=== PATIENT | male | born 1985 | race Caucasian/White ===

== ENCOUNTER 2020-07-11 11:30 | Outpatient (REF) | payer BC, SELFPAY | END 2020-07-11 11:31 | LOC: HO.LNP 11:30 | PROVIDERS: Visit Provider Internal Medicine | DX: N50.812 Left testicular pain (principal) | CPT/HCPCS: 81003 ==

== ENCOUNTER 2020-07-21 09:40 | Outpatient (REF) | payer BC, SELFPAY ==
[2020-07-21 10:52] LABS: Glucose Urine UA NEG (NEG); Leukocyte Esterase Urine NEG (NEG); Nitrite Urine NEG (NEG); Specific Gravity - Urine >= 1.030 (1.005-1.025); Urine Blood NEG (NEG); Urine Ketones NEG (NEG); Urine Protein NEG (NEG-TRACE)
[2020-07-21 10:54] LABS: Appearance Urine CLEAR; Color Urine YELLOW; UACC Culture Trigger NO
== END 2020-07-21 09:41 | disposition home or self-care (01) ==
LOC: HO.LAB 09:40
PROVIDERS: Visit Provider Internal Medicine
DX: R10.30 Lower abdominal pain, unspecified (principal); N50.812 Left testicular pain; N36.8 Other specified disorders of urethra
CPT/HCPCS: 81003

== ENCOUNTER → 2020-08-18 14:07 | Outpatient (BNVA) | payer BC, SELFPAY | PROVIDERS: PCP Internal Medicine; Referring Provider Internal Medicine; Visit Provider Urology | DX: Z76.89 Persons encountering health services in other specified circumstances (principal) ==

== ENCOUNTER 2020-09-02 08:02 | Outpatient (REF) | payer BC, SELFPAY ==
[2020-09-02 08:26] LABS: MANUAL DIFF FLAG NO
[2020-09-02 08:28] LABS: Basophils Percent Auto 0.4 % (0-2); Eosinophils Absolute Auto 0.1 X10*3/uL (0.0-0.4); Eosinophils Percent Auto 0.9 % (0-4); Hematocrit 46.3 % (42-52); Imm Gran Abs Auto 0.02 X10*3/uL (0.00-0.03); Imm Gran Pct Auto 0.3 % (0.0-0.4); Lymphocytes Absolute Auto 1.7 X10*3/uL (1.2-4.9); Lymphocytes Percent Auto 22.2 % (20-40); Mean Corpuscular HGB Conc 34.6 g/dl (31.0-36.0); Mean Corpuscular Volume 83.9 fL (80-98); Mean Platelet Volume 9.4 fL (9.4-12.4); Monocytes Absolute Auto 0.5 X10*3/uL (0.1-1.2); Monocytes Percent Auto 6.8 % (2-11); Neutrophils Absolute Auto 5.3 X10*3/uL (2.0-8.3); Neutrophils Percent Auto 69.4 % (45-73); Platelet Count 215 X10*3/uL (160-400); Red Blood Count 5.52 X10*6/uL (4.60-5.80); Red Cell Distribution Width 12.2 % (11.0-16.0); White Blood Count 7.6 X10*3/uL (4.8-10.8)
[2020-09-02 08:29] LABS: Glucose Urine UA NEG (NEG); Leukocyte Esterase Urine NEG (NEG); Nitrite Urine NEG (NEG); Specific Gravity - Urine >= 1.030 (1.005-1.025); Urine Blood TRACE (NEG); Urine Ketones NEG (NEG); Urine Protein NEG (NEG-TRACE)
[2020-09-02 08:42] LABS: Appearance Urine CLEAR; Color Urine YELLOW
[2020-09-02 08:52] LABS: Alanine Aminotransferase 23 U/L (0-40); Albumin Level 4.6 g/dL (3.5-5.0); Alkaline Phosphatase 50 U/L (39-117); Anion Gap 11 (12-20); Aspartate Amino Transferase 17 U/L (5-37); Blood Urea Nitrogen 14 mg/dL (9-16); Calcium 9.7 mg/dL (8.4-10.2); Carbon Dioxide 28 mmol/L (22-29); Chloride 104 mmol/L (96-108); Cholesterol 181 mg/dL; Estimated Glomerular Filt Rate > 60; Glucose Fasting 96 mg/dL (60-99); HDL Cholesterol 40 mg/dL; LDL Cholesterol Calculated 116 mg/dl; Potassium 4.3 mmol/l (3.3-5.1); Sodium 139 mmol/L (135-145); Total Protein 7.3 g/dL (6.5-8.0); Triglycerides 128 mg/dL
[2020-09-02 08:54] LABS: Amorphous Sediment Urine TRACE /LPF; RBC Urine 0-2 /HPF (0); WBC Urine 0 /HPF (0-4)
[2020-09-02 09:12] LABS: TSH reflex Free T4 0.81 mIU/mL (0.32-4.0)
== END 2020-09-02 08:03 | disposition home or self-care (01) ==
LOC: HO.LAB 08:02
PROVIDERS: PCP Internal Medicine; Visit Provider Internal Medicine
DX: J45.20 Mild intermittent asthma, uncomplicated (principal); Z00.00 Encounter for general adult medical examination without abnormal findings; E78.2 Mixed hyperlipidemia; E66.9 Obesity, unspecified; E55.9 Vitamin D deficiency, unspecified
CPT/HCPCS: 36415; 80053; 80061; 81001; 82306; 84443; 85025

== ENCOUNTER → 2020-09-29 09:23 | Outpatient (BNVA) | payer BC, SELFPAY | PROVIDERS: PCP Internal Medicine; Visit Provider Urology | DX: R10.30 Lower abdominal pain, unspecified (principal) | CPT/HCPCS: 20552 ==

== ENCOUNTER → 2020-10-13 09:33 | Outpatient (BNVA) | payer BC, SELFPAY | PROVIDERS: PCP Internal Medicine; Visit Provider Urology | DX: R10.31 Right lower quadrant pain (principal); R10.32 Left lower quadrant pain; N50.812 Left testicular pain | CPT/HCPCS: 64450 ==

== ENCOUNTER → 2020-10-27 08:22 | Outpatient (BNVA) | payer BC, SELFPAY | PROVIDERS: PCP Internal Medicine; Visit Provider Urology | DX: R10.31 Right lower quadrant pain (principal); R10.32 Left lower quadrant pain; N50.812 Left testicular pain | CPT/HCPCS: 64425 ==

== ENCOUNTER → 2020-11-10 09:20 | Outpatient (BNVA) | payer BC, SELFPAY | PROVIDERS: PCP Internal Medicine; Visit Provider Urology | DX: R10.31 Right lower quadrant pain (principal); R10.32 Left lower quadrant pain | CPT/HCPCS: 64425 ==

== ENCOUNTER 2022-09-26 08:13 | Day surgery (SDC) | payer BC, SELFPAY ==
[2022-09-23 13:35] VITALS: BMI 31.3
--- NOTE | 2022-09-25 09:09 | P.CONAN_ITS ---
Documented by User: aMyra Meza NP 09/25/22 09:09 HPI - Anesthesia Eval Consult details Narrative: 37yo M for Left?Excision Lumbar Lipoma PMFSH Active Problems Active Problems: All Active Problems (Updated 08/27/22 @ 11:59 by Mitchell Anne MD) Groin pain (Acute) Headache (Acute) Annual physical exam (Acute) Lipoma (Acute) Inguinal pain of both sides (Acute) Mixed hyperlipidemia (Acute) Obesity (BMI 30-39.9) (Acute) Urethral meatus pain (Acute) Left testicular pain (Acute) Vitamin D deficiency (Acute) Asthma (Acute) Past Medical History Medical History Asthma Inguinal pain of both sides Left testicular pain Mixed hyperlipidemia Obesity (BMI 30-39.9) Urethral meatus pain Vitamin D deficiency Family History Family History Father COPD (chronic obstructive pulmonary disease) Lung cancer Mother Diabetes Glaucoma Hypertension High cholesterol Brother Alive and well Surgical History Surgical History (Updated 09/23/22 @ 13:34 by Mone Baltazar RN) Status post excision of lipoma Social History Social History Housing: House Alcohol intake: never Patient Tobacco Use Status: Never used Tobacco e-Cigarette/Vaping Use: Never Used Second Hand Smoke Exposure: Yes Substance Use Frequency: Daily Advance Directives: No Advance Directives Information Provided: Yes service: No Current occupational status: employed Cognitive needs: No Hearing needs: No Vision needs: Yes Meds Allergies Allergy/AdvReac Type Severity Reaction Status Date / Time No Known Allergies Allergy Verified 09/02/22 11: Exam Exam Date and Time: September 25, 2022 0909 Height,Weight and Vital Signs: Height 6 ft Weight 104.78 kg Assessment and Plan Assessment Anesthesia Assessment: Chart Reviewed Documented by User: Alfie Murrieta MD 09/26/22 11:06 COUNT INCLUDES THE [facility] Past Medical History Medical History Asthma Inguinal pain of both sides Left testicular pain Mixed hyperlipidemia Obesity (BMI 30-39.9) Urethral meatus pain Vitamin D deficiency Family History Family History Father COPD (chronic obstructive pulmonary disease) Lung cancer Mother Diabetes Glaucoma Hypertension High cholesterol Brother Alive and well Family history of problems with anesthesia: No Surgical History Surgical History (Updated 09/23/22 @ 13:34 by Mone Baltazar RN) Status post excision of lipoma History of Problems with Anesthesia: No Social History Social History Housing: House Alcohol intake: never Patient Tobacco Use Status: Never used Tobacco e-Cigarette/Vaping Use: Never Used Second Hand Smoke Exposure: Yes Substance Use Frequency: Daily Advance Directives: No Advance Directives Information Provided: Yes service: No Current occupational status: employed Cognitive needs: No Hearing needs: No Vision needs: Yes Meds Allergies Allergy/AdvReac Type Severity Reaction Status Date / Time No Known Allergies Allergy Verified 09/02/22 11:22 Exam Airway Mallampati Class: II TM Dist: >3cm Heart: rrr Lungs: cta Assessment and Plan Assessment Anesthesia Assessment: Anesthesia Plan Discussed Final Anesthetic Review Family History of Problems with Anesthesia: No History of Problems with Anesthesia: No NPO: Yes ASA Class: II Final Preanesthetic Review: No Changes in Pt Med Stat, Meds/Allgs Chart Reviewed, Consent Obtained/Reviewed and Anes Risks/Benef Reviewed Patient Risk: Low Procedure Risk: Low Anesthetic Plan Anesthetic Plan: Agree w/ Assess. and Plan Disposition: Standard PACU
[2022-09-26 08:37] VITALS: BMI 32.5
[2022-09-26 08:58] VITALS: BP 130/82; PULSE 75; RESP 16; TEMP 36.5; O2SAT 97
[2022-09-26] MEDS: Lactated Ringers 1,000 ML 100 ML IVCONT (09:00)
--- NOTE | 2022-09-26 09:06 | MHC.SHP ---
Pre-Procedural Eval Section A Date of Service: 09/26/22 The patient is an INPATIENT: No The History & Physical has been completed within 30 days and I have reviewed it.: Yes Section B Chief Complaint: Benign lipomatous neoplasm, Allergies: Allergies Allergy/AdvReac Type Severity Reaction Status Date / Time No Known Allergies Allergy Verified 09/02/22 11:22 Plan I have reviewed the history and physical and performed a pertinent physical examination on my patient. No changes have occurred unless specified. Time Spent With Patient Time: Total time managing care of this patient today ____ minutes.
--- NOTE | 2022-09-26 09:06 | W.PM.OPN ---
Operative Note Operative Note Date of Service: 09/26/22 Narrative: Preop diagnosis: [Symptomatic left lumbar lipoma] Postop diagnosis: [Same, multilobulated lipoma to the lumbar fascia, size approximately 6 x 8 cm] Procedure: [Excision of symptomatic lumbar lipoma with intermediate closure of a 6 cm incision] Surgeon: Aris Ozuna MD Assist: [] Anesthesia: [MAC; local: lidocaine, 1% with epi/Ropivicaine, 0.5% 50/50 mix] Estimated blood loss: [3cc] Specimen: [Lipomatous tissue lumbar area] Intraoperative findings: [] Indications: [The patient is a 37-year-old gentleman with a symptomatic left lower back lipoma that is been more significant and bothersome as he has been losing weight. He wished to have it removed. The inherent risks of bleeding, infection, scar formation, recurrence and seroma was all discussed and apparently understood.] Procedure: [The patient was identified in the preoperative holding area and marked by myself. Sequential compression stockings were in place and the patient received Ancef, 2 g IV on-call. Patient was brought into or room 3 placed prone on the table and MAC administered by the anesthesiologist with excellent effect. An appropriate time-out was performed confirming the operative site and equipment. Patient was prepped and draped using ChloraPrep and local was infiltrated into the skin and subcutaneous tissues with excellent effect. Next, a 6 cm transverse skin incision was made over the lipomatous mass in the left lumbar area that I marked in same-day surgery. Hemostasis was obtained with electrocautery. The underlying superficial fascia was opened and a large, multilobulated lipoma that was deep into the lumbar fascia was encountered and removed in piecemeal fashion. After this was done, the specimen was sent for permanent section in the operative field irrigated copiously and inspected for hemostasis which was good. An intermediate closure using interrupted 3-0 Polysorb in the subcutaneous and deep dermis was used and 4-0 Monocryl on the skin in subcuticular manner. Patient tolerated the procedure well and was sent to the recovery in stable condition. All sponge instrument counts were correct x2]
[2022-09-26 12:20] VITALS: BP 115/73; PULSE 85; RESP 16; TEMP 36.7; O2SAT 96
[2022-09-26 12:25] VITALS: BP 115/73; PULSE 85; RESP 16; O2SAT 96
[2022-09-26 12:30] VITALS: BP 129/88; PULSE 77; RESP 20; O2SAT 98
[2022-09-26] MEDS: oxyCODONE HCl Immed Release 5 MG TABLET PO (12:32)
[2022-09-26 12:35] VITALS: BP 129/88; PULSE 69; RESP 18; TEMP 36.2; O2SAT 98
== END 2022-09-26 13:20 | disposition home or self-care (01) ==
LOC: HO.SSS 08:14
PROVIDERS: PCP Internal Medicine; Visit Provider Surgery
PROC: (CPT 21931; principal; 2022-09-26 10:20)
DX: D17.1 Benign lipomatous neoplasm of skin and subcutaneous tissue of trunk (principal); J45.909 Unspecified asthma, uncomplicated; E78.2 Mixed hyperlipidemia; E55.9 Vitamin D deficiency, unspecified; E66.8 Other obesity; Z68.31 Body mass index [BMI] 31.0-31.9, adult
CPT/HCPCS: 21931; 88304; J0690; J1885; J2795

== ENCOUNTER → 2022-10-04 10:22 | Outpatient (BNVA) | payer BC, SELFPAY | PROVIDERS: PCP Internal Medicine; Referring Provider Internal Medicine; Visit Provider Surgery | DX: Z13.89 Encounter for screening for other disorder (principal) ==

== ENCOUNTER → 2022-10-23 14:46 | Outpatient (BNVA) | payer BC, SELFPAY | PROVIDERS: PCP Internal Medicine; Visit Provider Surgery | DX: Z13.89 Encounter for screening for other disorder (principal) ==